=== PATIENT | male | born 1980 | race Caucasian/White ===

== ENCOUNTER 2017-03-29 13:46 | Emergency (ER) | payer SELFPAY ==
[~2017-03-29] VITALS: Ht 182.9 cm; Wt 90.6 kg
[2017-03-29 13:51] VITALS: Ht 182.9 cm; Wt 90.6 kg
== END 2017-03-29 17:09 | disposition left against medical advice (07) ==
LOC: FTE 13:46
DX: Z53.21 Procedure and treatment not carried out due to patient leaving prior to being seen by health care provider (principal)